=== PATIENT | female | born 1950 | race Caucasian/White ===

== ENCOUNTER 2016-08-23 05:53 | Inpatient (IN) ==
--- NOTE | 2016-08-22 09:43 | Anesthesia Evaluation PreOp ---
Date of Encounter: 08/23/16 Time of Encounter: 07:17 - Past History Planned Operation: CABG Cardiac History: Angina, HTN, Hyperlipidemia, Other (CAD) Pulmonary History: Former smoker (quit 28yrs ago) WARP DOFFER History: Other (Diabetic neuropathy) Other Medical History: Renal (stage 3 CKD), Diabetes Type II Anesthesia History: No Prior Anesthetic Complications, Past Anesthesia (NEW) : No Alcohol Use: none, occasionally Drug use: none Medications and Allergies Calcium Carbonate [Calcium] 500 mg PO DAILY 08/16/16 [History] Cholecalciferol (D-3) [Vitamin D] 1,000 unit PO DAILY 08/16/16 [History] Gabapentin [Neurontin] 800 mg PO TID 08/16/16 [History] Insulin DETEMIR [Levemir] 75 unit SQ HS 08/16/16 [History] Lisinopril [Zestril] 40 mg PO DAILY 08/16/16 [History] Metoprolol [Lopressor] 25 mg PO BID 08/16/16 [History] Multivitamin [Multivitamins] 1 each PO DAILY 08/16/16 [History] Omeprazole 20 mg PO DAILY 08/16/16 [History] Simvastatin [Zocor] 20 mg PO HS 08/16/16 [History] SitaGLIPtin [Januvia] 100 mg PO DAILY 08/16/16 [History] hydroCHLOROthiazide [Hydrochlorothiazide] 25 mg PO DAILY 08/16/16 [History] Allergies No Known Allergies Allergy (Verified 08/23/16 07:13) - Meds/Allergy Pre-op Review Medications Reviewed: Yes Allergies Reviewed: Yes Beta Blockers on Current Med List: Yes If Beta Blockers taken, Date/Time (Last Dose taken): 529 this morning Anesthesia Results - Labs Laboratory Tests 08/12/16 08/12/16 09:23 09:23 Hgb 11.5 Hct 34.4 L Plt Count 228 Sodium 138 Potassium 4.6 H BUN 33 H Creatinine 1.55 H - Imaging EKG: report reviewed Additional studies: Echo shows mild LV diastolic dysfunction, EF60%, mild MR Cath shows severe 3 vessel ds positive nuclear stress twest showing inferior/inferolateral changes Anesthesia Exam Selected Entries 08/23/16 06:26 Temperature 97.7 F Pulse Rate 49 Respiratory Rate 18 Blood Pressure 130/69 O2 Sat by Pulse Oximetry 95 Height: 62in Weight: 88kg NPO (# of Hours): 8 Pain Scale: 0 Pain Scale Used: Numeric (1 - 10) - HEENT Pupil (Motor): EOMI Mallampati: II Teeth: Edentulous Oral Opening: Greater than 3 - WARP DOFFER LOC: Oriented WARP DOFFER Motor: Normal RUE, Normal LUE, Normal RLE, Normal LLE, Normal Face WARP DOFFER Sensory: Normal: RUE, LUE, RLE, LLE, Face - Cardiac Rhythm: Regular Murmur: None - Pulmonary Breath Sounds: bilateral Clear Respiratory Effort: Symmetrical Anesthesia Assess/Plan ASA Score: 3 Modified Hershey Scale for Level of Consciousness: Cooperative, oriented, and tranquil Anesthetic Plan: General Monitoring Plan: Standard Monitors, A-Line, PAC, ASIF Recovery Plan: ICU (Discussed risks of GA, lines, ASIF and blood. Questions answered and agrees to proceed)
[2016-08-23] MEDS ORDERED: Ringers Solution, Lactated 1,000 ML IVC SCH (06:30)
[2016-08-23] MEDS ORDERED: ceFAZolin 1,000 MG in D5% in Water (Mini-Bag+) 100 ML IVPB ONE (06:37)
[2016-08-23] MEDS ORDERED: *HR* Phenylephrine 10 MG/ML VIAL ONE (06:43)
[2016-08-23] MEDS ORDERED: *HR* Norepinephrine 4 MG/4 ML VIAL IVC ONE (06:43)
[2016-08-23] MEDS ORDERED: *HR* Rocuronium Bromide 50 MG/5 ML VIAL ONE (06:43)
[2016-08-23] MEDS ORDERED: Famotidine 20 MG/2 ML VIAL ONE (06:44)
[2016-08-23] MEDS ORDERED: Protamine Sulfate 250 MG/25 ML VIAL IVP ONE (06:44)
[2016-08-23] MEDS ORDERED: *HR* Etomidate 20 MG/10 ML AMPUL IVP ONE (06:44)
[2016-08-23] MEDS ORDERED: Tranexamic Acid 1,000 MG/10 ML VIAL ONE (06:44)
[2016-08-23] MEDS ORDERED: *HR* Midazolam HCl 5 MG/5 ML VIAL IVP ONE (06:50)
[2016-08-23] MEDS ORDERED: *HR* FentaNYL (PF) 1,000 MCG/20 ML VIAL ONE (06:50)
[2016-08-23] MEDS ORDERED: Nitroglycerin 25 MG/250 ML INFUS..BTL IVC ONE ×2 (06:54→11:31)
[2016-08-23] MEDS ORDERED: NiCARdipine 2.5 MG/10 ML Syringe IVPB ONE (06:55)
[2016-08-23] MEDS: Chlorhexidine Rinse 15 ML MOUTHWASH MM SCH ×2 (07:02→20:09)
--- NOTE | 2016-08-23 07:11 | History & Physical Report ---
Date of Encounter: 08/23/16 Time of Encounter: 07:11 24 Hour HP Update - Instructions Instructions: If the History and Physical is less than 30 days old and was completed prior to A.M. admission and or procedure and has NOT been updated on calendar day of procedure please complete this update prior to performing procedure. - Update Patient reports changes in Medical Condition: No Changes in examination, assessment, or condition: No Changes in Medication: No Preop tests/diagnostics Reviewed: Yes Pre-Op MRSA Screen: Negative Surgery Remains Indicated: Yes Consent for Planned Operative Procedure(s) Verified: Yes - Pre-Operative Checklist Preoperative Checklist Indicated: No Prophylactic Antibiotic Ordered: Yes Home Medications Include Beta Sneha: Yes Beta Sneha Taken Today (Day of Surgery): Yes Beta Sneha Taken Yesterday (Day Prior to Surgery): Yes Is VTE Prophylaxis Indicated?: NO
[2016-08-23] MEDS ORDERED: *HR* Dextrose 50 % in Water (Syg) 50 ML SYRINGE ONE (08:18)
--- NOTE | 2016-08-23 08:36 | Anesthesia Procedures ---
Date of Encounter: 08/23/16 Time of Encounter: 07:50 Procedures: Anesthesia - Arterial Line Consent obtained: written consent Time out performed: Yes Sedation: Versed (mg): 2 Sedation: Fentanyl (mcg): 100 Supplemental Oxygen via Nasal Cannula (L/min): 2 Local Anesthetic: Lidocaine 1% Amount of Anesthetic used (mls): 1 Size (Gauge): 20 Length (inches): 5 Technique Used: sterile prep, guide wire technique, direct puncture technique Post-Procedure: line taped into place, dry sterile dressing placed Patient tolerated procedure: well, no complications Complications: none Site: Radial L (attempt x 1 easy) - Central Line Placement Right IJ Consent obtained: written consent Patient placed on monitor/pulse ox: Yes prep: mask, gown, gloves Central line prep: Chlorhexidine scrub Ultrasound used for placement: Yes Technique: Seldinger Lumen Inserted: Introducer Post procedure: sutured in place, good blood return, all ports aspirated, flushed, capped, sterile dressing applied Patient tolerated procedure: well, no complications Complications: none (attempt x 1, introducer placed easily. Able to get swan to PA but unable to wedge after 4 tries. Left catheter at approx 58cm. No arrythmia with placement.)
[2016-08-23] MEDS ORDERED: *HR* Atropine Sulfate 0.4 MG/ML VIAL ONE (09:22)
[2016-08-23] MEDS ORDERED: Albumin Human 5% 50.0 GM/1,000 ML VIAL ONE (11:31)
[2016-08-23] MEDS ORDERED: Naloxone 0.4 MG/ML INJ IVP PRN (11:45)
[2016-08-23] MEDS ORDERED: Acetaminophen 650 MG RECTAL SUPP RC PRN (11:45)
[2016-08-23] MEDS ORDERED: Norepinephrine 4 MG in D5% in Water 250 ML IVC SCH (11:45)
[2016-08-23] MEDS ORDERED: 0.9 % Sodium Chloride 1,000 ML IVC SCH (11:45)
[2016-08-23] MEDS ORDERED: Acetaminophen 325 MG TABLET PO PRN (11:45)
[2016-08-23] MEDS ORDERED: Insulin Human Regular 100 UNIT in 0.9 % Sodium Chloride 100 ML IVC SCH (11:45)
[2016-08-23] MEDS ORDERED: Potassium Chloride 40 MEQ/200 ML BAG IVPB PRN (11:45)
[2016-08-23] MEDS ORDERED: Magnesium Sulfate 2 GM in D5% in Water 100 ML IVPB PRN (11:45)
[2016-08-23] MEDS ORDERED: *HR* Morphine 2 MG/ML SYRINGE IVP PRN (11:45)
[2016-08-23] MEDS ORDERED: Ondansetron 4 MG/2 ML VIAL IVP PRN (11:45)
[2016-08-23] MEDS ORDERED: Insulin Regular, Human 100 UNIT/ML IV PRN (11:45)
[2016-08-23] MEDS ORDERED: *HR* Dextrose 50 % in Water (Syg) 50 ML SYRINGE IVP PRN (11:45)
[2016-08-23] MEDS ORDERED: Calcium Chloride 1,000 MG in 0.9 % Sodium Chloride 100 ML IVPB PRN (11:45)
--- NOTE | 2016-08-23 11:45 | Operative Note ---
Date of procedure: 08/23/16 Pre-op diagnosis: CAD with stable angina. Post-op diagnosis: same Procedure: 1. CABG4 (DE LEON to LAD, sequential SVG to D1 then OM1, SVG to PDA). 2. Endoscopic vein harvesting, greater saphenous vein from left lower extremity. 3. Endoscopic vein harvesting, greater saphenous vein from right lower extremity. Implants: None. Complications: None. Anesthesia: GETA Surgeon: Binta Zhang Second Facing Baster: Percy Zarate Specimen: None. Condition: stable Disposition: ICU Procedure in Detail: INDICATIONS FOR OPERATION: The patient is a 65-year-old lady with a one-year history of exertional left jaw pain and associated shortness of breath and dyspnea on exertion. The patient was being evaluated for a laparoscopic cholecystectomy when she mentioned these symptoms to her surgeon. The patient was referred for further cardiac workup. The nuclear stress test revealed inferior and inferolateral ischemia and she was recommended for cardiac catheterization. This study revealed severe 3 vessel CAD and LVEF 60%. In particular, patient had 90% proximal LAD lesion, a 90% D1 bifurcation lesion, an 80% proximal LCx lesion, a completely occluded proximal RCA which fills distally via zrox-di-phrfe collaterals. She has been recommended for CABG. FINDINGS AT OPERATION: The aorta was of normal caliber without calcification. The coronary arteries measure proximally and 0.5-2 mm in diameter, except the LAD which measured approximately 1-1.25 mm in diameter when it became epicardial. The greater saphenous vein was harvested endoscopically from both left and right lower extremities from the knee to the groin nodes of good quality. The total bypass time was 72 minutes, cross-clamp time 42 minutes, intentional hypothermia to 33 C. DESCRIPTION OF OPERATION: After obtaining informed consent from the patient, she was taken to the operative room where satisfactory general endotracheal anesthetic was induced. Appropriate monitoring lines placed, and the patient's chest, abdomen, and lower extremities were prepped and draped in a sterile fashion. Initially the greater saphenous vein could not be identified in the right lower extremity and the vein in the left lower extremity was harvested from the mid calf to the groin. The vein was removed, distended, and found to have 2 usable segments. A third usable segment of greater saphenous vein was identified in the right lower extremity and harvested endoscopically from the knee to the mid thigh. The vein was removed, distended, and found to be of good quality. The subcutaneous tissue and skin edges were reapproximated using running Vicryl sutures. Simultaneously, a standard median sternotomy incision was made and the sternum divided. The DE LEON was taken down from its bed and side branches divided between hemoclips. The sternum was of the pericardium opened and reflected laterally. He patient was prepared for cannulation by placing purse string sutures in the distal ascending aorta, mid-ascending aorta, and right atrial appendage. The patient was heparinized and when the ACT was greater than 200 seconds, the distal ascending aorta was cannulated followed by placement of a dual stage venous cannula through the right atrial appendage and into the inferior vena cava. A stab-in antegrade metabolic and was placed in the mid- ascending aorta. The patient was placed on bypass and the temperature allowed to drift to 33C. The distal targets were identified and the aorta was cross-clamp. The patient received 1000 mL of cold antegrade crystalloid cardioplegia through the aortic root and the patient's heart obtained diastolic arrest. The PDA was opened with B blade and the vein was anastomosed in end-to-side fashion using running 7-0 Prolene suture. The anastomosis was found to be hemostatic and the patient received another dose of cold antegrade crystalloid cardioplegia through the aortic root. The OM1 branch was opened with a [place] blade and the vein anastomosed in an end-to-side fashion using running 7-0 Prolene suture. The anastomosis was found to be hemostatic. The D1 branch was opened B blade and the vein was opened in longitudinal fashion so the uwau-pr-gclo anastomosis could be completed using a running 7-0 Prolene suture. The anastomosis was found to be hemostatic and the patient received a final dose of cold antegrade crystalloid cardioplegia through the aortic root. The LAD was an open [place] blade were became epicardial. The vessel was small, measuring approximately 1- 1.25 mm in diameter. A 1 mm probe was passed in both directions without encountering obstructions and a septal fund development manager was noted in the vessel helping to identify this vessel as the LAD. The DE LEON was anastomosed to the LAD in an end-to-side fashion using running 7-0 Prolene suture. Anastomosis was found to be hemostatic and the pedicle was tacked to the epicardium using interrupted 5-0 silk suture. Rewarming was begun during this anastomosis. The aortic cross-clamp was released and the heart distended. The veins were measured and cut appropriate lengths. A partial occluding clamp was placed across the mid-ascending aorta and the antegrade cardioplegia cannula was removed. An additional aortotomy site was made 11 blade and both sides were enlarged with a 4 mm punch. The veins were anastomosed in an end-to-side fashion to the aorta using a running 5-0 Prolene suture. The vein grafts were occluded with bulldog clamp and 0-25-gauge needle prior to removing the partial occluding clamp. The proximal distal anastomoses were found to be hemostatic and the proximal anastomoses were marked with radiopaque loops. Two right ventricular temporary pacing was replaced, and 3 chest tubes were placed, 2 in the mediastinum and one into the right pleural space. During rewarming the patient's heart regained sinus bradycardia rhythm. The temporary pacing leads were attached to the pacemaker generator and the patient was paced in a VVI mode at 80 pulses per minute. When the patient's systemic temperature reached 36 C, she was ventilated received volume. She was then weaned from bypass required no inotropic support. Protamine was administered and the aortic and venous cannulas removed. The pursestring sutures were secured and the venous cannulation site was reinforced with a running 4-0 Prolene suture. The pericardium was reapproximated over the aorta and pulmonary artery; however, could not be approximated distally due to excessive tension. The sternum was reapproximated using sternal wires and the pectoralis major fascia, rectus abdominis fascia, subcutaneous tissue, and skin edges were reapproximated using running Vicryl sutures. A negative pressure sterile dressing was applied to the sternotomy incision. The patient was transferred to the ICU in satisfactory postoperative condition. There were no intraoperative complications, and the isthmic, needle, and sponge count were correct at end of operation. - Open Heart Detail LIAN (Internal Mammary Artery) Usage: Yes Cardiopulmonary Bypass Time (mins): 72 Aortic Cross Clamp Time (mins): 42 Intentional Hypothermia Temperature (C.): 33
[2016-08-23] MEDS ORDERED: Tranexamic Acid 1,000 MG/10 ML VIAL IV ONE (12:00)
[2016-08-23] MEDS ORDERED: *HR* Phenylephrine 10 MG/ML VIAL IC ONE (12:00)
[2016-08-23] MEDS ORDERED: *HR* Magnesium Sulfate 2 GM/50 ML PIGGYBACK IVPB ONE (12:00)
[2016-08-23] MEDS ORDERED: Mannitol 25% vial 12.5 GM/50 ML VIAL IVPB ONE (12:00)
[2016-08-23] MEDS ORDERED: *HR* Heparin 10,000 UNIT/10 ML VIAL IVP ONE (12:00)
[2016-08-23] MEDS ORDERED: Albumin Human 25% 25 GM/100 ML IV.SOLN IV ONE (12:00)
[2016-08-23] MEDS ORDERED: Lidocaine 2% Syringe 100 MG/5 ML IVP ONE (12:00)
[2016-08-23 12:15] LABS: Basophils # 0.1 K/mcL (0.0-0.2); Basophils % 0.3 %; Eosinophils # 0.2 K/mcL (0.0-0.6); Eosinophils % 1.4 %; Hematocrit 28.3 % (35.3-44.9); Hemoglobin 9.6 g/dL (11.5-15.4); Lymphocytes # 1.9 K/mcL (0.6-4.6); Lymphocytes % 11.6 %; Mean Corpuscular HGB Conc 33.9 g/dL (31.6-35.5); Mean Corpuscular Hemoglobin 28.2 pg (28.0-33.3); Mean Corpuscular Volume 83.2 fL (83.0-100.0); Mean Platelet Volume 9.9 fL (9.4-12.4); Monocytes # 0.9 K/mcL (0.0-1.3); Monocytes % 5.4 %; Platelet Count 100 K/mcL (140-400); Red Cell Distribution Width 13.6 % (11.5-14.5); Segmented Neutrophils % 80.3 %
[2016-08-23 12:16] LABS: ABG Base Excess -1.2 mEq/L (-2.0 to 3.0); ABG HCO3 23.6 mEQ/L (21-27); ABG Oxygen Saturation 100 % (95-98); ABG PCO2 39 mmHg (35-45); ABG PO2 306 mmHg (85-104); ABG TCO2 24.8 mEq/L (20-26)
[2016-08-23 12:18] LABS: ABG PH 7.39 pH Units (7.32-7.45); Blood Gas FiO2 70 %
[2016-08-23 12:20] LABS: INR 1.5; Prothrombin Time 16.2 Seconds (9.4-12.1)
[2016-08-23 12:22] LABS: Activated Partial Thrombo Time 33.8 Seconds (26.0-36.0)
[2016-08-23 12:27] LABS: BUN/Creatinine Ratio 23 (6-26); Blood Urea Nitrogen 25 mg/dL (7-20); Calcium 8.1 mg/dL (8.6-10.8); Carbon Dioxide 23 mEq/L (19-29); Chloride 114 mEq/L (98-109); Glucose 119 mg/dL (70-99); Magnesium 2.5 mg/dL (1.6-2.6); Osmolality,Calculated 300 (280-300); Potassium 4.1 mEq/L (3.5-4.5); Sodium 142 mEq/L (136-145); eGFR For African Americans > 60 (> 60); eGFR For Non-African Americans 50 (> 60)
[2016-08-23] MEDS ORDERED: *HR* Atropine Sulfate 1 MG/10 ML SYRINGE ONE (12:28)
[2016-08-23 13:01] LABS: VBG HCO3 24.8 mEq/L (21-27)
[2016-08-23 13:04] LABS: VBG PH 7.34 pH Units (7.32-7.42)
[2016-08-23 13:06] LABS: ABG PH 7.23 pH Units (7.32-7.45)
[2016-08-23 13:08] LABS: ABG PCO2 71 mmHg (35-45)
[2016-08-23 13:09] LABS: ABG Base Excess 1.1 mEq/L (-2.0 to 3.0); ABG Glucose 69 mg/dL (60-95); ABG HCO3 29.7 mEQ/L (21-27); ABG Hematocrit 31 % (35-51); ABG Oxygen Saturation 96 % (95-98); ABG PO2 98 mmHg (85-104); ABG TCO2 31.9 mEq/L (20-26)
[2016-08-23 13:12] LABS: ABG PH 7.35 pH Units (7.32-7.45)
[2016-08-23 13:13] LABS: ABG Base Excess 0.1 mEq/L (-2.0 to 3.0); ABG Glucose 143 mg/dL (60-95); ABG HCO3 25.9 mEQ/L (21-27); ABG Hematocrit 26 % (35-51); ABG Ionized Calcium 1.27 mmol/L (1.15-1.35); ABG Oxygen Saturation 100 % (95-98); ABG PCO2 47 mmHg (35-45); ABG PO2 223 mmHg (85-104); ABG TCO2 27.3 mEq/L (20-26)
[2016-08-23 13:15] LABS: ABG Base Excess -1.3 mEq/L (-2.0 to 3.0); ABG HCO3 23.7 mEQ/L (21-27); ABG Hematocrit 18 % (35-51); ABG Oxygen Saturation 100 % (95-98); ABG PCO2 40 mmHg (35-45); ABG PH 7.38 pH Units (7.32-7.45); ABG PO2 644 mmHg (85-104); ABG TCO2 24.9 mEq/L (20-26)
[2016-08-23 13:16] LABS: ABG Glucose 235 mg/dL (60-95); ABG Ionized Calcium 0.98 mmol/L (1.15-1.35)
[2016-08-23 13:18] LABS: ABG Base Excess -0.3 mEq/L (-2.0 to 3.0); ABG Glucose 198 mg/dL (60-95); ABG HCO3 24.8 mEQ/L (21-27); ABG Hematocrit 20 % (35-51); ABG Ionized Calcium 1.08 mmol/L (1.15-1.35); ABG Oxygen Saturation 100 % (95-98); ABG PCO2 42 mmHg (35-45); ABG PH 7.38 pH Units (7.32-7.45); ABG PO2 510 mmHg (85-104); ABG TCO2 26.1 mEq/L (20-26)
[2016-08-23 13:20] LABS: ABG PCO2 42 mmHg (35-45); ABG PH 7.38 pH Units (7.32-7.45)
[2016-08-23 13:21] LABS: ABG Base Excess -0.3 mEq/L (-2.0 to 3.0); ABG Glucose 171 mg/dL (60-95); ABG HCO3 24.8 mEQ/L (21-27); ABG Hematocrit 21 % (35-51); ABG Ionized Calcium 1.06 mmol/L (1.15-1.35); ABG Oxygen Saturation 100 % (95-98); ABG PO2 515 mmHg (85-104); ABG TCO2 26.1 mEq/L (20-26)
[2016-08-23 13:23] LABS: ABG Base Excess 2.8 mEq/L (-2.0 to 3.0); ABG Glucose 159 mg/dL (60-95); ABG HCO3 27.9 mEQ/L (21-27); ABG Hematocrit 22 % (35-51); ABG Ionized Calcium 1.05 mmol/L (1.15-1.35); ABG Oxygen Saturation 100 % (95-98); ABG PCO2 45 mmHg (35-45); ABG PO2 513 mmHg (85-104); ABG TCO2 29.3 mEq/L (20-26)
[2016-08-23] MEDS: Pantoprazole 40 MG VIAL IVP SCH (13:24)
[2016-08-23 13:25] LABS: ABG Base Excess -1.6 mEq/L (-2.0 to 3.0); ABG HCO3 23.7 mEQ/L (21-27); ABG PCO2 42 mmHg (35-45); ABG PH 7.36 pH Units (7.32-7.45); ABG PO2 195 mmHg (85-104)
[2016-08-23] MEDS: Metoclopramide 10 MG/2 ML VIAL IVP SCH ×3 (13:25→23:01)
[2016-08-23 13:26] LABS: ABG Glucose 125 mg/dL (60-95); ABG Hematocrit 19 % (35-51); ABG Ionized Calcium 1.38 mmol/L (1.15-1.35); ABG Oxygen Saturation 100 % (95-98)
[2016-08-23 13:28] LABS: ABG Base Excess -3.2 mEq/L (-2.0 to 3.0); ABG Glucose 109 mg/dL (60-95); ABG Hematocrit 20 % (35-51); ABG Ionized Calcium 1.08 mmol/L (1.15-1.35); ABG Oxygen Saturation 100 % (95-98); ABG PCO2 39 mmHg (35-45); ABG PH 7.36 pH Units (7.32-7.45); ABG PO2 190 mmHg (85-104); ABG TCO2 23.2 mEq/L (20-26)
[2016-08-23] MEDS: niCARdipine 40 MG/200 ML MLS IVC SCH ×2 (14:16→20:00)
[2016-08-23] MEDS: *HR* Morphine 2 MG/ML SYRINGE IVP PRN (15:29)
[2016-08-23] MEDS: ceFAZolin 2,000 MG in D5% in Water 100 ML IVPB SCH ×2 (15:34→23:00)
[2016-08-23 16:30] LABS: Hematocrit 28.3 % (35.3-44.9); Hemoglobin 9.7 g/dL (11.5-15.4)
[2016-08-23 16:31] LABS: ABG Base Excess -1.9 mEq/L (-2.0 to 3.0); ABG HCO3 21.5 mEQ/L (21-27); ABG Oxygen Saturation 99 % (95-98); ABG PCO2 31 mmHg (35-45); ABG PH 7.45 pH Units (7.32-7.45); ABG PO2 114 mmHg (85-104); ABG TCO2 22.5 mEq/L (20-26)
[2016-08-23 16:33] LABS: Blood Gas FiO2 35 %
--- NOTE | 2016-08-23 17:02 | Event Note ---
Date of Encounter: 08/23/16 Time of Encounter: 17:01 Nephrology Chart Review Full consult and recommendations to follow. SCr post op was near 1 but likely dilutional from IVF, so will trend SCr. Hx of CKD stage III without prior nephrology care. Will check renal U/S and CKD work up. Thank you for consulting the [facility] group. Will follow with you.
[2016-08-23] MEDS: *HR* OxyCODONE/APAP 5/325 TABLET PO PRN ×2 (18:03→23:02)
[2016-08-23 20:01] LABS: ABG Base Excess -0.3 mEq/L (-2.0 to 3.0); ABG HCO3 22.3 mEQ/L (21-27); ABG Oxygen Saturation 96 % (95-98); ABG PCO2 28 mmHg (35-45); ABG PO2 75 mmHg (85-104); ABG TCO2 23.2 mEq/L (20-26); Blood Gas FiO2 21 %
[2016-08-23 20:03] LABS: ABG PH 7.51 pH Units (7.32-7.45)
--- NOTE | 2016-08-23 21:09 | Electrocardiograph Report ---
[place] [id number] Test Date: 2016-08-23 Pat Name: Lorena Silva Department: 109 Room: [facility] Gender: F Swing Ride Operator: : 1950 Requested By: Binta Zhang Order Number: [id number] Reading MD: Marlyn De La Torre Measurements Intervals [place] Rate: 63 P: OR: 0 QRS: 20 QRSD: 122 T: 1 QT: 428 QTc: 435 Interpretive Statements SINUS RHYTHM INTERMITTENT V PACING Electronically Signed On 08-23-2016 21:07:22 EDT by Marlyn De La Torre
[2016-08-23 23:18] LABS: ABG Base Excess -0.7 mEq/L (-2.0 to 3.0); ABG HCO3 22.6 mEQ/L (21-27); ABG Oxygen Saturation 99 % (95-98); ABG PCO2 31 mmHg (35-45); ABG PO2 110 mmHg (85-104); ABG TCO2 23.6 mEq/L (20-26); Blood Gas FiO2 30 %
[2016-08-23 23:19] LABS: ABG PH 7.47 pH Units (7.32-7.45)
[2016-08-24] MEDS: niCARdipine 40 MG/200 ML MLS IVC SCH (00:32)
[2016-08-24 00:38] LABS: ABG Base Excess -1.5 mEq/L (-2.0 to 3.0); ABG HCO3 23.7 mEQ/L (21-27); ABG Oxygen Saturation 97 % (95-98); ABG PCO2 41 mmHg (35-45); ABG PO2 99 mmHg (85-104); Blood Gas FiO2 30 %
[2016-08-24 00:40] LABS: ABG PH 7.37 pH Units (7.32-7.45)
[2016-08-24 02:16] LABS: ABG Base Excess -2.8 mEq/L (-2.0 to 3.0); ABG HCO3 22.6 mEQ/L (21-27); ABG Oxygen Saturation 93 % (95-98); ABG PCO2 41 mmHg (35-45); ABG PO2 72 mmHg (85-104); ABG TCO2 23.9 mEq/L (20-26)
[2016-08-24 02:17] LABS: Blood Gas FiO2 24 %
[2016-08-24 02:18] LABS: ABG PH 7.35 pH Units (7.32-7.45)
[2016-08-24 03:02] LABS: Basophils % 0.2 %; Eosinophils % 0.1 %; Hematocrit 26.8 % (35.3-44.9); Hemoglobin 9.1 g/dL (11.5-15.4); Immature Granulocytes % 0.6 % (0-4); Lymphocytes % 7.3 %; Mean Corpuscular Hemoglobin 28.3 pg (28.0-33.3); Mean Corpuscular Volume 83.2 fL (83.0-100.0); Mean Platelet Volume 9.8 fL (9.4-12.4); Monocytes # 0.9 K/mcL (0.0-1.3); Monocytes % 6.4 %; Neutrophils # 11.3 K/mcL (1.6-8.9); Platelet Count 110 K/mcL (140-400); Red Blood Count 3.22 M/mcL (3.82-4.97); Segmented Neutrophils % 85.4 %
[2016-08-24 03:06] LABS: INR 1.2; Prothrombin Time 13.1 Seconds (9.4-12.1)
[2016-08-24 03:09] LABS: Activated Partial Thrombo Time 27.8 Seconds (26.0-36.0)
[2016-08-24 03:15] LABS: Calcium 8.3 mg/dL (8.6-10.8); Magnesium 2.5 mg/dL (1.6-2.6)
[2016-08-24 03:17] LABS: Albumin 3.4 g/dL (3.5-5.0)
[2016-08-24 03:18] LABS: Phosphorous 3.7 mg/dL (2.3-4.7)
[2016-08-24] MEDS: Metoclopramide 10 MG/2 ML VIAL IVP SCH ×3 (05:00→17:24)
--- NOTE | 2016-08-24 07:12 | Cardiothoracic Progress Note ---
Date of Encounter: 08/24/16 Time of Encounter: 07:09 - Assessment and plan (1) CAD (coronary artery disease) Current Visit: No Status: Acute The patient is recovering well from her CABG 4. She is extubated and breathing comfortably. She has been able to sit in a chair without difficulty. Her renal function is at baseline this morning and she is being followed by nephrology. The arterial line, catheter, and [place] catheter removed. Patient was transferred to the stepdown unit later today. The assessment and plan as outlined above was discussed with the patient and/or family members who expressed understanding and agreement. All questions were answered. Qualifiers: Coronary Disease-Associated Artery/Lesion type: [place] artery [place] vs. transplanted heart: [place] heart Associated angina: with stable angina Qualified Code(s): I25.118 - Atherosclerotic heart disease of [place] coronary artery with other forms of angina pectoris - Subjective Procedure(s) Performed: POD#1 S/P CABG4 Interval history: The patient remained hemodynamically stable overnight. She is extubated and sitting in a chair. She is breathing comfortably. She has no complaints. Vital Signs, Last 4 Hours Temp Pulse Resp BP Pulse Ox 08/24/16 06:05 81 16 122/46 96 08/24/16 05:00 98.6 F 78 16 119/42 94 08/24/16 04:22 20 126/43 94 08/24/16 03:55 74 16 117/45 96 [place]gy[place] Flow Rate Oxygen Flow Rate (LPM) 1 Clinical Data, last 8 Hours Output, Chest Tube Drainage 50 Amount [mediastinal 2] Output, Chest Tube Drainage 10 Amount [mediastinal 2] Output, Chest Tube Drainage 10 Amount [mediastinal 2] Output, Chest Tube Drainage 25 Amount [mediastinal 2] Output, Chest Tube Drainage 20 Amount [mediastinal 2] Output, Chest Tube Drainage 10 Amount [mediastinal 2] Output, Chest Tube Drainage 30 Amount [mediastinal 2] Output, Chest Tube Drainage 25 Amount [mediastinal 1] Output, Chest Tube Drainage 10 Amount [mediastinal 1] Output, Chest Tube Drainage 2 Amount [mediastinal 1] Output, Chest Tube Drainage 2 Amount [mediastinal 1] Weight 08/22/16 08/23/16 08/24/16 23:59 23:59 23:59 Weight 88.451 kg - Physical Examination General: Conversant, No Apparent Distress Neck: No JVD, Normal carotid pulses Cardiac: Reg Rate and Rhythm, Normal S1 and S2, No Murmur Incision: No signs of infection, Dry/intact dressing Sternum: Stable Chest tubes: Minimal drainage, Other (No air leak.) Pacing Wires: In place Lungs: Normal Breath Sounds, No Wheeze, Rales, Rhonchi Neuro: Alert and responsive, No focal deficits noted Vascular: Normal capillary refill Musculoskeletal: No Chest Wall Tenderness Extremities: No Clubbing, No Cyanosis, No Edema - Labs 08/24/16 02:55 08/24/16 02:55 Lab Results, Last 24 hours 08/23/16 08/23/16 08/23/16 12:05 12:05 12:05 WBC 16.2 H Hgb 9.6 L Hct 28.3 L Plt Count 100 L INR 1.5 APTT 33.8 Sodium 142 Potassium 4.1 Chloride 114 H Carbon Dioxide 23 BUN 25 H Creatinine 1.09 Glucose 119 H Calcium 8.1 L Magnesium 2.5 08/23/16 08/24/16 08/24/16 16:20 02:55 02:55 WBC 13.3 H Hgb 9.7 L 9.1 L Hct 28.3 L 26.8 L Plt Count 110 L INR 1.2 APTT 27.8 Sodium Potassium Chloride Carbon Dioxide BUN Creatinine Glucose Calcium Magnesium 08/24/16 02:55 WBC Hgb Hct Plt Count INR APTT Sodium 141 Potassium 4.0 Chloride 112 H Carbon Dioxide 23 BUN 29 H Creatinine 1.51 H Glucose 131 H Calcium 8.3 L Magnesium 2.5 - Imaging Chest Xray: image reviewed (No pneumothorax. Minimal atelectasis/infiltrates.) - VTE Documentation of Mechanical Device: Graduated compression elastic hosiery Consult Discharge Plan - Plan Referrals: Arleen Moore MD [Primary Care Provider] -
[2016-08-24] MEDS: Chlorhexidine Rinse 15 ML MOUTHWASH MM SCH ×2 (07:27→20:43)
[2016-08-24] MEDS: *HR* Morphine 2 MG/ML SYRINGE IVP PRN (07:27)
[2016-08-24] MEDS: Pantoprazole 40 MG VIAL IVP SCH (07:28)
[2016-08-24] MEDS ORDERED: Furosemide 20 MG/2 ML VIAL IVP SCH (08:00)
[2016-08-24] MEDS ORDERED: Aspirin Enteric Coated 81 MG Tablet PO SCH (09:00)
[2016-08-24] MEDS ORDERED: D5% in Water 1,000 ML IVC PRN (10:03)
[2016-08-24] MEDS ORDERED: Ondansetron 4 MG/2 ML VIAL IVP PRN (10:03)
[2016-08-24] MEDS ORDERED: Insulin Regular, Human 100 UNIT/ML IV PRN (10:03)
[2016-08-24] MEDS ORDERED: Acetaminophen 325 MG TABLET PO PRN (10:03)
[2016-08-24] MEDS ORDERED: *HR* Morphine 2 MG/ML SYRINGE IVP PRN ×2 (10:03)
[2016-08-24] MEDS ORDERED: Naloxone 0.4 MG/ML INJ IVP PRN (10:03)
[2016-08-24] MEDS ORDERED: *HR* Dextrose 50 % in Water (Syg) 50 ML SYRINGE IVP PRN (10:03)
[2016-08-24] MEDS ORDERED: Dextrose Gel 15 GM PO PRN ×2 (10:03)
--- NOTE | 2016-08-24 10:37 | Nephrology Consult Note ---
Date of Encounter: 08/24/16 Time of Encounter: 09:45 Assessment and Plan (1) HI (acute kidney injury) Current Visit: Yes Status: Acute Nonoliguric HI on CKD stage III with baseline eGFR 40-50s Suspect HI etiology to be multifactorial: hemodynamics, underlying CKD and hx of chronic XS NSAID use. NSAIDS also carry a higher risk for CAD. I counseled her on standard CKD protective steps. 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 Will trend CK Thank you for consulting the [facility] group. (2) Anemia Current Visit: Yes Status: Acute Will trend. Qualifiers: Anemia type: other cause Other causes of anemia: other cause, not classified Qualified Code(s): D64.89 - Other specified anemias (3) Status post coronary artery bypass graft Current Visit: Yes Status: Acute S/p CABG on 08/23/16. (4) CKD (chronic kidney disease), stage III Current Visit: Yes Status: Chronic CKD stage III with baseline eGFR in 40-50s. She affirmed NSAID regular / daily use of NSAIDs prior to this hospitalization. 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 Qualifiers: Obesity type: unspecified obesity type Obesity severity: morbid Qualified Code(s): E66.01 - Morbid (severe) obesity due to excess calories History of Present Illness - Reason for Consult Consult date: 08/23/16 Acute Kidney Injury, Chronic Kidney Disease Requesting physician: Binta Zhang - Chief Complaint HI on CKD III - History of Present Illness Lorena Silva is a very pleasant 65 y/o obese WF with a pmh of HTN, arthritis on daily NSAIDS and et al who presented for a planned CABG. Earlier this year she developed gall bladder complaints and was getting worked up for cholecystectomy when in preoperative evaluation she ultimately required a LHC with findings of triple vessel disease and was referred for CABG. 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 She affirmed at least twice per day that she takes Advil for arthritis pains in her hands. She reported that her PCP had advised against taking NSAIDs in the past. She did not affirm uremic symptoms. She was seen and evaluated in the ICU. Past Med Surg Social Fam HX - Past Medical History Medical history: coronary artery disease, diabetes, hyperlipidemia, hypertension , renal disease, other Psychiatric history: no psych history - Past Surgical History Surgical History: hysterectomy, other - Social History Smoking Status: Former smoker Packs per day: Quit smoking 27 years ago Smokeless Tobacco Status: No Alcohol use: none, occasionally Drug use: none Medications and Allergies Calcium Carbonate [Calcium] 500 mg PO DAILY 08/16/16 [History] Cholecalciferol (D-3) [Vitamin D] 1,000 unit PO DAILY 08/16/16 [History] Gabapentin [Neurontin] 800 mg PO TID 08/16/16 [History] Insulin DETEMIR [Levemir] 75 unit SQ HS 08/16/16 [History] Lisinopril [Zestril] 40 mg PO DAILY 08/16/16 [History] Metoprolol [Lopressor] 25 mg PO BID 08/16/16 [History] Multivitamin [Multivitamins] 1 each PO DAILY 08/16/16 [History] Omeprazole 20 mg PO DAILY 08/16/16 [History] Simvastatin [Zocor] 20 mg PO HS 08/16/16 [History] SitaGLIPtin [Januvia] 100 mg PO DAILY 08/16/16 [History] hydroCHLOROthiazide [Hydrochlorothiazide] 25 mg PO DAILY 08/16/16 [History] Allergies No Known Allergies Allergy (Verified 08/23/16 07:13) Review of Systems All Systems: reviewed and no additional remarkable complaints except as stated Exam - Vital Signs Vital signs: Initial Vital Signs Temp Pulse Resp BP Pulse Ox 97.7 F 49 18 130/69 95 08/23/16 06:26 08/23/16 06:26 08/23/16 06:26 08/23/16 06:26 08/23/16 06:26 Vital Signs - Last 8 Hours Temp Pulse Resp BP Pulse Ox 08/24/16 08:21 16 949 08/24/16 08:06 76 14 121/50 94 08/24/16 07:30 98.8 F 77 16 133/49 96 08/24/16 06:05 81 16 122/46 96 08/24/16 05:00 98.6 F 78 16 119/42 94 08/24/16 04:22 20 126/43 94 08/24/16 03:55 74 16 117/45 96 08/24/16 03:00 99.2 F 73 12 114/47 96 Intake and Output 08/23/16 08/24/16 08/24/16 23:59 07:59 15:59 Intake Total 396.0 / 396.0 348.3 / 348.3 1007.8 / 1007.8 Output Total 1085 / 1085 509 / 509 0 / 0 Balance -689.0 / -689.0 -160.7 / -160.7 1007.8 / 1007.8 Intake: IV Fluids 296.0 / 296.0 348.3 / 348.3 1007.8 / 1007.8 0.9 % Sodium Chloride 1, 1000 / 1000 000 ML @ 50 mls/hr IVC . Q20H [facility] Rx#:[id number] HumuLIN R 100 UNIT In 0. 6.0 / 6.0 60.3 / 60.3 7.8 / 7.8 9 % Sodium Chloride 100 ML @ 1 UNIT/HR 1.01 mls/ hr IVC CONT [facility] Rx#: [id number] Cardene Premix 40mg/200ml 90 / 90 38 / 38 40 mg In 200 ml @ 5 MG/ HR 25 mls/hr IVC .Q8H [facility] Rx#:[id number] ALBURX 5% 12.5 gm In 250 250 / 250 ml @ 999 mls/hr IVPB AD PRN Rx#:[id number] Ancef 2,000 MG In 200 / 200 Dextrose 5% 100 ML @ 200 mls/hr IVPB Q8HR [facility] Rx#: [id number] Oral 0 / 0 0 / 0 Intake, Autotransfusion 100 / 100 Amount Output: Catheter 885 / 885 280 / 280 0 / 0 Chest Tube Drainage 200 / 200 229 / 229 0 / 0 mediastinal 1 10 54 / 54 0 / 0 mediastinal 2 190 / 190 175 / 175 0 / 0 Other: Blood Glucose* 145 158 147 - General Appearance General appearance: well-developed, well-nourished, appears started age, obese EENT: ATNC, PERRL, mucous membranes moist Neck: supple Respiratory: clear Cardiology: edema (trace to 1+ pedal edema with white stocking in place b/l), regular rate, regular rhythm, normal S1, normal S2 Gastrointestinal: normoactive bowel sounds, no tenderness, no guarding, obese Integumentary: no rash, warm and dry Neurologic: no focal deficit, no asterixis, alert and oriented x3 Musculoskeletal: no deformities, no erythema, no cyanosis, no clubbing Psychiatric: mood/affect appropriate, cooperative Results - Lab Results 08/24/16 02:55 08/24/16 02:55 Most recent lab results ABG pH 7.35 pH Units (7.32-7.45) 08/24/16 02:10 ABG pCO2 41 mmHg (35-45) 08/24/16 02:10 ABG pO2 72 mmHg (85-104) L 08/24/16 02:10 ABG HCO3 22.6 mEQ/L (21-27) 08/24/16 02:10 ABG O2 Saturation 93 % (95-98) L 08/24/16 02:10 Calcium 8.3 mg/dL (8.6-10.8) L 08/24/16 02:55 Phosphorus 3.7 mg/dL (2.3-4.7) 08/24/16 02:55 Magnesium 2.5 mg/dL (1.6-2.6) 08/24/16 02:55 I reviewed the above auto generated data tse, including labs, meds, vitals, imaging and progress notes. Consult Discharge Plan - Plan Referrals: Arleen Moore MD [Primary Care Provider] -
[2016-08-24] MEDS: *HR* OxyCODONE/APAP 5/325 TABLET PO PRN ×2 (10:44→18:29)
[2016-08-24] MEDS: Insulin LISPRO 300 UNITS/3 ML VIAL SQ SCH ×4 (10:45→20:46)
[2016-08-24] MEDS: Gabapentin 400 MG CAPSULE PO SCH ×3 (10:52→20:44)
[2016-08-24] MEDS: Cholecalciferol (D-3) 1,000 UNIT TABLET PO SCH (10:52)
[2016-08-24] MEDS: Multivit/Ca/Min/Fe/FA 1 TAB TABLET PO SCH (10:55)
--- NOTE | 2016-08-24 13:53 | Anesthesia Evaluation Post Op ---
Date of Encounter: 08/24/16 Time of Encounter: 12:30 - Vital Signs Vital Signs: Selected Entries 08/24/16 10:00 08/24/16 12:00 Temperature 98.5 F Pulse Rate 78 Respiratory Rate 16 Blood Pressure 123/51 O2 Sat by Pulse Oximetry 94 Oxygen Delivery Method Room Air - Lungs Lungs: Clear Ascult./Percussion - Airway Airway: Non-obstructed - Cardiovascular Regular Rate - Mental Status Mental Status: Alert & Oriented, Answers Appropriately - Pain Pain Scale: 3 Pain Scale used: Numeric (1 - 10) - Nausea Vomiting Nausea Vomiting: Not Present - Hydration Hydration: Tolerates oral liquids, catheter
[2016-08-24] MEDS: Furosemide 20 MG/2 ML VIAL IVP SCH (17:24)
[2016-08-25] MEDS: Metoclopramide 10 MG/2 ML VIAL IVP SCH ×5 (00:20→23:48)
[2016-08-25] MEDS: *HR* OxyCODONE/APAP 5/325 TABLET PO PRN ×3 (04:01→23:48)
[2016-08-25 04:41] LABS: Calcium 8.3 mg/dL (8.6-10.8); Magnesium 2.4 mg/dL (1.6-2.6); Phosphorous 3.7 mg/dL (2.3-4.7); Potassium 4.2 mEq/L (3.5-4.5)
[2016-08-25] MEDS: Insulin LISPRO 300 UNITS/3 ML VIAL SQ SCH ×4 (07:46→21:21)
[2016-08-25] MEDS: Furosemide 20 MG/2 ML VIAL IVP SCH ×2 (07:47→17:52)
[2016-08-25] MEDS: Chlorhexidine Rinse 15 ML MOUTHWASH MM SCH ×2 (08:32→21:21)
[2016-08-25] MEDS: Cholecalciferol (D-3) 1,000 UNIT TABLET PO SCH (08:32)
[2016-08-25] MEDS: Pantoprazole 40 MG VIAL IVP SCH (08:33)
[2016-08-25] MEDS: Multivit/Ca/Min/Fe/FA 1 TAB TABLET PO SCH (08:33)
[2016-08-25] MEDS: Aspirin Enteric Coated 81 MG Tablet PO SCH (08:33)
[2016-08-25] MEDS: Gabapentin 400 MG CAPSULE PO SCH ×3 (08:33→21:20)
--- NOTE | 2016-08-25 08:55 | Cardiothoracic Progress Note ---
Date of Encounter: 08/25/16 Time of Encounter: 08:53 - Assessment and plan (1) CAD (coronary artery disease) Current Visit: No Status: Acute The patient is recovering well from her CABG 4. She is breathing comfortably. Her chest tubes continue to drain and will remain in place. Her renal function remains at baseline this morning and she is being followed by nephrology. She will be transferred to the stepdown unit later when a bed is available. The assessment and plan as outlined above was discussed with the patient and/or family members who expressed understanding and agreement. All questions were answered. Qualifiers: Coronary Disease-Associated Artery/Lesion type: [place] artery [place] vs. transplanted heart: [place] heart Associated angina: with stable angina Qualified Code(s): I25.118 - Atherosclerotic heart disease of [place] coronary artery with other forms of angina pectoris - Subjective Procedure(s) Performed: POD#2 S/P CABG4 Interval history: The patient remained hemodynamically stable overnight. She is breathing comfortably. She has no complaints. Vital Signs, Last 4 Hours Temp Pulse 08/25/16 08:13 98.4 F 08/25/16 08:00 76 Oxgyen Flow Rate Oxygen Flow Rate (LPM) 1 Clinical Data, last 8 Hours Output, Chest Tube Drainage 20 Amount [mediastinal 2] Output, Chest Tube Drainage 30 Amount [mediastinal 2] Output, Chest Tube Drainage 0 Amount [mediastinal 2] Output, Chest Tube Drainage 0 Amount [mediastinal 1] Output, Chest Tube Drainage 150 Amount [mediastinal 1] Output, Chest Tube Drainage 0 Amount [mediastinal 1] Output, Urine Amount 0 Weight 08/23/16 08/24/16 08/25/16 23:59 23:59 23:59 Weight 88.451 kg 90.5 kg - Physical Examination General: Conversant, No Apparent Distress Neck: No JVD, Normal carotid pulses Cardiac: Reg Rate and Rhythm Incision: No signs of infection, Dry/intact dressing Sternum: Stable Chest tubes: Minimal drainage, Air leak Pacing Wires: In place Lungs: Normal Breath Sounds, No Wheeze, Rales, Rhonchi Neuro: Alert and responsive, No focal deficits noted Vascular: Normal capillary refill Musculoskeletal: No Chest Wall Tenderness Extremities: No Clubbing, No Cyanosis, No Edema - Labs 08/24/16 02:55 08/25/16 04:06 Lab Results, Last 24 hours 08/25/16 04:06 Sodium 136 Potassium 4.2 Chloride 105 Carbon Dioxide 23 BUN 42 H D Creatinine 1.76 H Glucose 218 H Calcium 8.3 L Magnesium 2.4 - VTE Documentation of Mechanical Device: Graduated compression elastic hosiery Consult Discharge Plan - Plan Referrals: Arleen Moore MD [Primary Care Provider] -
--- NOTE | 2016-08-25 11:46 | Nephrology Progress Note ---
<Nathalia Downing - Last Filed: 08/25/16 13:23> Date of Encounter: 08/25/16 Time of Encounter: 13:24 - Assessment and Plan (1) HI (acute kidney injury) Current Visit: Yes Status: Acute Patient with nonoliguric HI on CKD stage III. Etiology is multifactorial - hemodynamics, underlying CKD and chronic use of NSAIDs. Creatinine worsening today 1.09 > 1.51 > 1.76 likely secondary to patient's worsening CK 636 > 1762 secondary to her recent CABG. Recommend IVF with the worsening CK. Monitor kidney function. No indication for acute hemodialysis at this time. Continue to monitor UOP and I/O Hold patients home ALEJANDRO and HCTZ Renal protective strategies including renal dosage of medications and avoid any nephrotoxic medications. Patient will likely require outpatient follow up with nephrology to monitor her underlying chronic kidney disease. (2) Anemia Current Visit: Yes Status: Acute Qualifiers: Anemia type: other cause Other causes of anemia: other cause, not classified Qualified Code(s): D64.89 - Other specified anemias (3) CKD (chronic kidney disease), stage III Current Visit: Yes Status: Chronic (4) Status post coronary artery bypass graft Current Visit: Yes Status: Acute Subjective Principal diagnosis: Status post CABG Interval history: Ms Lorena Silva is a 65yo female with PMH of HTN and arthritis who is admitted status post CABG. Nephrology consulted for acute kidney injury. Patient appears to have CKD, stage III with baseline GFR in the 40s-50s. No acute events overnight. Patient afebrile and vital signs within normal limits. Creatinine 1.79 today from 1.51 yesterday. Patient seen and examined. She is awake and alert, in no acute distress. She as no complaints at this time and reports that she feels better than she thought she would. She reports no urinary symptoms. She does report that her legs frequently swell and they are currently wrapped. Objective - Vital Signs Vital signs: Vital Signs Temp Pulse Resp BP Pulse Ox 08/25/16 10:00 73 14 147/70 94 08/25/16 08:30 16 147/70 94 08/25/16 08:13 98.4 F 08/25/16 08:00 76 08/25/16 04:50 98.5 F 08/25/16 04:10 78 24 148/70 94 08/25/16 03:55 17 91 08/25/16 00:31 69 26 120/63 93 08/25/16 00:19 98.7 F 08/24/16 23:50 17 94 08/24/16 21:00 98.4 F 08/24/16 20:45 75 24 122/75 93 08/24/16 19:59 18 93 08/24/16 18:00 78 20 141/71 94 08/24/16 16:07 14 93 08/24/16 16:00 98.2 F 75 20 142/69 94 08/24/16 15:00 72 08/24/16 14:00 72 20 113/54 94 08/24/16 12:00 78 16 123/51 94 Intake and Output 08/24/16 08/25/16 08/25/16 23:59 07:59 15:59 Intake Total 640 / 640 240 / 240 240 / 240 Output Total 50 / 50 145 / 145 325 / 325 Balance 590 / 590 95 / 95 -85 / -85 Intake: Oral 640 / 640 240 / 240 240 / 240 Output: Urine 50 / 50 0 / 0 Catheter 125 / 125 Chest Tube Drainage 145 / 145 200 / 200 mediastinal 1 75 / 75 150 / 150 mediastinal 2 70 / 70 50 / 50 Other: Meal Breakfast Percent of Meal Consumed 20% Weight 90.5 kg Blood Glucose* 209 226 Patient Weight 08/25/16 23:59 Weight 90.5 kg - General Appearance General appearance: Present: well-developed, well-nourished, appears started age EENT: Present: PERRL, mucous membranes moist Neck: Present: no JVD Respiratory: Present: clear. Absent: rales, rhonchi Cardiology: Present: no rub, no gallops, regular rate, regular rhythm Additional Comments: Legs wrapped Gastrointestinal: Present: no tenderness, no guarding Integumentary: Present: no rash, warm and dry Neurologic: Present: no focal deficit, alert and oriented x3 Psychiatric: Present: mood/affect appropriate, cooperative - Lab 08/24/16 02:55 08/25/16 04:06 Most recent lab results ABG pH 7.35 pH Units (7.32-7.45) 08/24/16 02:10 ABG pCO2 41 mmHg (35-45) 08/24/16 02:10 ABG pO2 72 mmHg (85-104) L 08/24/16 02:10 ABG HCO3 22.6 mEQ/L (21-27) 08/24/16 02:10 ABG O2 Saturation 93 % (95-98) L 08/24/16 02:10 Calcium 8.3 mg/dL (8.6-10.8) L 08/25/16 04:06 Phosphorus 3.7 mg/dL (2.3-4.7) 08/25/16 04:06 Magnesium 2.4 mg/dL (1.6-2.6) 08/25/16 04:06 - VTE Documentation of Mechanical Device: Graduated compression elastic hosiery Consult Discharge Plan - Plan Referrals: Arleen Moore MD [Primary Care Provider] - <Mark Ken - Last Filed: 08/26/16 13:46> Date of Encounter: 08/25/16 Objective - Vital Signs Vital signs: Vital Signs Temp Pulse Resp BP Pulse Ox 08/26/16 11:46 70 08/26/16 11:15 98.0 F 70 18 143/73 97 08/26/16 08:17 98.6 F 72 18 138/88 92 08/26/16 08:08 72 08/26/16 07:59 16 92 08/26/16 04:50 70 08/26/16 04:36 98.0 F 74 16 140/64 93 08/26/16 04:11 16 91 08/25/16 23:44 98.1 F 95 16 134/65 93 08/25/16 23:15 16 91 08/25/16 21:13 98.7 F 83 18 150/61 92 08/25/16 21:00 79 08/25/16 20:27 16 94 08/25/16 17:03 18 94 08/25/16 16:21 99.0 F 75 18 149/67 94 Intake and Output 08/25/16 08/26/16 08/26/16 23:59 07:59 15:59 Intake Total 240 / 240 Output Total 690 / 690 30 / 30 785 / 785 Balance -450 / -450 -30 / -30 -785 / -785 Intake: Oral 240 / 240 Output: Urine 470 / 470 600 / 600 Chest Tube Drainage 220 / 220 30 / 30 185 / 185 mediastinal 1 160 / 160 20 / 20 75 / 75 mediastinal 2 60 / 60 110 / 110 Other: Meal Dinner Percent of Meal Consumed 75% Weight 91.7 kg Blood Glucose* 269 260 Patient Weight 08/26/16 23:59 Weight 91.7 kg - Lab 08/26/16 04:50 08/26/16 04:57 Most recent lab results ABG pH 7.35 pH Units (7.32-7.45) 08/24/16 02:10 ABG pCO2 41 mmHg (35-45) 08/24/16 02:10 ABG pO2 72 mmHg (85-104) L 08/24/16 02:10 ABG HCO3 22.6 mEQ/L (21-27) 08/24/16 02:10 ABG O2 Saturation 93 % (95-98) L 08/24/16 02:10 Calcium 8.4 mg/dL (8.6-10.8) L 08/26/16 04:57 Phosphorus 3.7 mg/dL (2.3-4.7) 08/25/16 04:06 Magnesium 2.4 mg/dL (1.6-2.6) 08/25/16 04:06 Urine Creatinine 160 mg/dL 08/25/16 16:27 Urine Sodium < 20.0 mEq/L 08/25/16 16:27 - Attending Attestation I examined this patient and my medical decision-making was reviewed with the AGENT SPA DESK/PA/Advanced Practice Nurse/Resident Physician. I agree with the documented findings, disposition and treatment plan as described except to the extent set forth below. Pt seen and examined resting comfortably after being transferred from ICU to . Interim events noted s/p CABG SCr mildly worse at 1.76, GFR 29 along with rising CPK and dropping hgb at 9.1, likely related. Continue supportive care and check urine for sodium, creatinine, eosinophils. Followup CPK and uric acid levels
[2016-08-25 16:37] LABS: Bilirubin,Urine Negative (Negative); Blood,Urine Small (Negative); Clarity,Urine Cloudy (Clear); Color,Urine Yellow (Yellow); Glucose,Urine (UA) 100 mg/dL (Normal); Ketones,Urine Negative (Negative); Leukocyte Esterase,Urine Moderate (Negative); Nitrite,Urine Negative (Negative); PH,Urine 5.5 pH Units (5.0-8.0); Protein,Urine 100 mg/dL (Neg-Trace); Specific Gravity,Urine 1.022 (1.010-1.025); Urobilinogen,Urine Normal (Normal)
[2016-08-25 16:39] LABS: Bacteria,Urine None Seen per hpf (None-Few); Hyaline Casts,Urine Few per lpf (None-Few); Squamous Epithelial Cell,Urine Many per lpf (None-Few); WBC,Urine 50-100 per hpf (0-3)
[2016-08-25 18:06] LABS: Creatinine,Urine 160 mg/dL
[2016-08-25 18:09] LABS: Sodium, Urine < 20.0 mEq/L
[2016-08-25] MEDS: Insulin DETEMIR 100 UNIT/ML X5UNITS SQ SCH (21:21)
[2016-08-26 05:02] LABS: Basophils % 0.2 %; Eosinophils # 0.1 K/mcL (0.0-0.6); Hematocrit 23.7 % (35.3-44.9); Hemoglobin 7.8 g/dL (11.5-15.4); Immature Granulocytes % 0.8 % (0-4); Lymphocytes # 1.9 K/mcL (0.6-4.6); Lymphocytes % 14.4 %; Mean Corpuscular HGB Conc 32.9 g/dL (31.6-35.5); Mean Corpuscular Hemoglobin 28.5 pg (28.0-33.3); Mean Corpuscular Volume 86.5 fL (83.0-100.0); Mean Platelet Volume 10.6 fL (9.4-12.4); Monocytes # 1.2 K/mcL (0.0-1.3); Neutrophils # 9.8 K/mcL (1.6-8.9); Platelet Count 113 K/mcL (140-400); Red Blood Count 2.74 M/mcL (3.82-4.97); Red Cell Distribution Width 14.2 % (11.5-14.5); Segmented Neutrophils % 74.6 %
[2016-08-26 05:16] LABS: Calcium 8.4 mg/dL (8.6-10.8); Potassium 4.2 mEq/L (3.5-4.5)
[2016-08-26] MEDS: Metoclopramide 10 MG/2 ML VIAL IVP SCH ×2 (06:15→11:20)
[2016-08-26] MEDS: Pantoprazole 40 MG VIAL IVP SCH (07:36)
[2016-08-26] MEDS: Multivit/Ca/Min/Fe/FA 1 TAB TABLET PO SCH (07:36)
[2016-08-26] MEDS: Furosemide 20 MG/2 ML VIAL IVP SCH ×2 (07:36→16:59)
[2016-08-26] MEDS: Cholecalciferol (D-3) 1,000 UNIT TABLET PO SCH (07:36)
[2016-08-26] MEDS: Aspirin Enteric Coated 81 MG Tablet PO SCH (07:36)
[2016-08-26] MEDS: Gabapentin 400 MG CAPSULE PO SCH ×3 (07:37→21:04)
[2016-08-26] MEDS: Chlorhexidine Rinse 15 ML MOUTHWASH MM SCH ×2 (07:38→21:03)
[2016-08-26] MEDS: Insulin LISPRO 300 UNITS/3 ML VIAL SQ SCH ×4 (08:26→21:06)
--- NOTE | 2016-08-26 10:43 | Cardiothoracic Progress Note ---
Date of Encounter: 08/26/16 Time of Encounter: 10:41 - Assessment and plan (1) Status post coronary artery bypass graft Current Visit: Yes Status: Acute The assessment and plan as outlined above was discussed with the patient and/or family members who expressed understanding and agreement. All questions were answered. The chest tubes and pacing wires were removed. We will check a stat portable chest x-ray. - Subjective Interval history: The patient has no complaints. Vital Signs, Last 4 Hours Temp Pulse Resp BP Pulse Ox 08/26/16 08:17 98.6 F 72 18 138/88 92 08/26/16 08:08 72 08/26/16 07:59 16 92 Oxgyen Flow Rate Oxygen Flow Rate (LPM) 1 Clinical Data, last 8 Hours Output, Chest Tube Drainage 50 Amount [mediastinal 2] Output, Chest Tube Drainage 10 Amount [mediastinal 2] Output, Chest Tube Drainage 50 Amount [mediastinal 2] Output, Chest Tube Drainage 10 Amount [mediastinal 2] Output, Chest Tube Drainage 25 Amount [mediastinal 1] Output, Chest Tube Drainage 25 Amount [mediastinal 1] Output, Chest Tube Drainage 25 Amount [mediastinal 1] Output, Chest Tube Drainage 20 Amount [mediastinal 1] Output, Urine Amount 600 Weight 08/24/16 08/25/16 08/26/16 23:59 23:59 23:59 Weight 90.5 kg 91.7 kg Lungs are clear to percussion and auscultation. Heart is in a normal sinus rhythm. All incisions are healing well without signs of infection and the sternum is stable. Chest tube drainage is minimal and there is no air leak. - Labs 08/26/16 04:50 08/26/16 04:57 Lab Results, Last 24 hours 08/26/16 08/26/16 04:50 04:57 WBC 13.1 H Hgb 7.8 L Hct 23.7 L Plt Count 113 L Sodium 133 L Potassium 4.2 Chloride 103 Carbon Dioxide 23 BUN 53 H D Creatinine 1.68 H Glucose 196 H Calcium 8.4 L - VTE Documentation of Mechanical Device: Graduated compression elastic hosiery Consult Discharge Plan - Plan Referrals: Arleen Moore MD [Primary Care Provider] -
--- NOTE | 2016-08-26 12:46 | Nephrology Progress Note ---
Date of Encounter: 08/26/16 Time of Encounter: 12:45 Subjective Principal diagnosis: Status post CABG Objective - Vital Signs Vital signs: Vital Signs Temp Pulse Resp BP Pulse Ox 08/26/16 11:46 70 08/26/16 11:15 98.0 F 70 18 143/73 97 08/26/16 08:17 98.6 F 72 18 138/88 92 08/26/16 08:08 72 08/26/16 07:59 16 92 08/26/16 04:50 70 08/26/16 04:36 98.0 F 74 16 140/64 93 08/26/16 04:11 16 91 08/25/16 23:44 98.1 F 95 16 134/65 93 08/25/16 23:15 16 91 08/25/16 21:13 98.7 F 83 18 150/61 92 08/25/16 21:00 79 08/25/16 20:27 16 94 08/25/16 17:03 18 94 08/25/16 16:21 99.0 F 75 18 149/67 94 08/25/16 13:05 98.5 F 73 16 150/70 96 Intake and Output 08/25/16 08/26/16 08/26/16 23:59 07:59 15:59 Intake Total 240 / 240 Output Total 690 / 690 30 / 30 785 / 785 Balance -450 / -450 -30 / -30 -785 / -785 Intake: Oral 240 / 240 Output: Urine 470 / 470 600 / 600 Chest Tube Drainage 220 / 220 30 / 30 185 / 185 mediastinal 1 160 / 160 20 / 20 75 / 75 mediastinal 2 60 / 60 10 110 / 110 Other: Meal Dinner Percent of Meal Consumed 75% Weight 91.7 kg Blood Glucose* 269 260 Patient Weight 08/26/16 23:59 Weight 91.7 kg - Lab 08/26/16 04:50 08/26/16 04:57 Most recent lab results ABG pH 7.35 pH Units (7.32-7.45) 08/24/16 02:10 ABG pCO2 41 mmHg (35-45) 08/24/16 02:10 ABG pO2 72 mmHg (85-104) L 08/24/16 02:10 ABG HCO3 22.6 mEQ/L (21-27) 08/24/16 02:10 ABG O2 Saturation 93 % (95-98) L 08/24/16 02:10 Calcium 8.4 mg/dL (8.6-10.8) L 08/26/16 04:57 Phosphorus 3.7 mg/dL (2.3-4.7) 08/25/16 04:06 Magnesium 2.4 mg/dL (1.6-2.6) 08/25/16 04:06 Urine Creatinine 160 mg/dL 08/25/16 16:27 Urine Sodium < 20.0 mEq/L 08/25/16 16:27 - VTE Documentation of Mechanical Device: Graduated compression elastic hosiery Consult Discharge Plan - Plan Referrals: Arleen Moore MD [Primary Care Provider] -
--- NOTE | 2016-08-26 13:51 | Nephrology Progress Note ---
Date of Encounter: 08/26/16 Time of Encounter: 13:00 - Assessment and Plan (1) HI (acute kidney injury) Current Visit: Yes Status: Acute SCr improving at 1.68, GFR 31 along with imprving CPk at 1089, will monitor Po fluids encouraged. Ideally, maintaining even fluid balance would be beneficial to improving renal function Clover noted <20 consistent with volume depletion. FEurea noted at 16.9% again consistent with pre-renal state Avoid nephrotoxins if possible (2) Anemia Current Visit: Yes Status: Acute Hgb noted dropping at 7.8, will monitor Transfusion parameter per primary team Qualifiers: Anemia type: other cause Other causes of anemia: other cause, not classified Qualified Code(s): D64.89 - Other specified anemias (3) Status post coronary artery bypass graft Current Visit: Yes Status: Acute Per cardiothoracic surgery (4) CKD (chronic kidney disease), stage III Current Visit: Yes Status: Chronic Subjective Principal diagnosis: Status post CABG Interval history: Pt seen and examined sitting up in chair, feels better now that her chest tubes have been removed. No new complaints. Objective - Vital Signs Vital signs: Vital Signs Temp Pulse Resp BP Pulse Ox 08/26/16 11:46 70 08/26/16 11:15 98.0 F 70 18 143/73 97 08/26/16 08:17 98.6 F 72 18 138/88 92 08/26/16 08:08 72 08/26/16 07:59 16 92 08/26/16 04:50 70 08/26/16 04:36 98.0 F 74 16 140/64 93 08/26/16 04:11 16 91 08/25/16 23:44 98.1 F 95 16 134/65 93 08/25/16 23:15 16 91 08/25/16 21:13 98.7 F 83 18 150/61 92 08/25/16 21:00 79 08/25/16 20:27 16 94 08/25/16 17:03 18 94 08/25/16 16:21 99.0 F 75 18 149/67 94 Intake and Output 08/25/16 08/26/16 08/26/16 23:59 07:59 15:59 Intake Total 240 / 240 Output Total 690 / 690 30 / 30 785 / 785 Balance -450 / -450 -30 / -30 -785 / -785 Intake: Oral 240 / 240 Output: Urine 470 / 470 600 / 600 Chest Tube Drainage 220 / 220 30 30 185 / 185 mediastinal 1 160 / 160 20 / 20 75 / 75 mediastinal 2 60 / 60 110 / 110 Other: Meal Dinner Percent of Meal Consumed 75% Weight 91.7 kg Blood Glucose* 269 260 Patient Weight 08/26/16 23:59 Weight 91.7 kg - General Appearance General appearance: Present: well-developed, well-nourished (NAD) EENT: Present: ATNC, mucous membranes moist Neck: Present: no JVD, supple Additional Comments: good areation ant bilat with midline dressing above her surgical wound Cardiology: Present: no edema, normal S1, normal S2 Gastrointestinal: Present: no tenderness, no guarding Integumentary: Present: warm and dry Neurologic: Present: no focal deficit Musculoskeletal: Present: no deformities Psychiatric: Present: mood/affect appropriate - Lab 08/26/16 04:50 08/26/16 04:57 Most recent lab results ABG pH 7.35 pH Units (7.32-7.45) 08/24/16 02:10 ABG pCO2 41 mmHg (35-45) 08/24/16 02:10 ABG pO2 72 mmHg (85-104) L 08/24/16 02:10 ABG HCO3 22.6 mEQ/L (21-27) 08/24/16 02:10 ABG O2 Saturation 93 % (95-98) L 08/24/16 02:10 Calcium 8.4 mg/dL (8.6-10.8) L 08/26/16 04:57 Phosphorus 3.7 mg/dL (2.3-4.7) 08/25/16 04:06 Magnesium 2.4 mg/dL (1.6-2.6) 08/25/16 04:06 Urine Creatinine 160 mg/dL 08/25/16 16:27 Urine Sodium < 20.0 mEq/L 08/25/16 16:27 - VTE Documentation of Mechanical Device: Graduated compression elastic hosiery Consult Discharge Plan - Plan Referrals: Arleen Moore MD [Primary Care Provider] -
[2016-08-26] MEDS: Insulin DETEMIR 100 UNIT/ML X5UNITS SQ SCH (21:05)
[2016-08-26] MEDS: *HR* OxyCODONE/APAP 5/325 TABLET PO PRN (21:09)
[2016-08-27] MEDS: *HR* OxyCODONE/APAP 5/325 TABLET PO PRN ×2 (03:02→20:59)
[2016-08-27 05:50] LABS: Beta Globulin (PEP) 0.48 g/dL (0.48-1.10)
[2016-08-27] MEDS: Insulin LISPRO 300 UNITS/3 ML VIAL SQ SCH ×3 (07:36→17:02)
[2016-08-27] MEDS: Furosemide 20 MG/2 ML VIAL IVP SCH (08:15)
[2016-08-27] MEDS: Gabapentin 400 MG CAPSULE PO SCH ×3 (08:16→20:59)
[2016-08-27] MEDS: Pantoprazole 40 MG VIAL IVP SCH (08:16)
[2016-08-27] MEDS: Aspirin Enteric Coated 81 MG Tablet PO SCH (08:16)
[2016-08-27] MEDS: Chlorhexidine Rinse 15 ML MOUTHWASH MM SCH ×2 (08:16→20:55)
[2016-08-27] MEDS: Multivit/Ca/Min/Fe/FA 1 TAB TABLET PO SCH (08:16)
[2016-08-27] MEDS: Cholecalciferol (D-3) 1,000 UNIT TABLET PO SCH (08:16)
--- NOTE | 2016-08-27 09:13 | Cardiothoracic Progress Note ---
Date of Encounter: 08/27/16 Time of Encounter: 09:12 - Assessment and plan (1) Status post coronary artery bypass graft Current Visit: Yes Status: Acute Hopefully, the patient can be discharged in 1-2 days. - Subjective Interval history: The patient complains of mild postoperative pain. Vital Signs, Last 4 Hours Temp Pulse Resp BP Pulse Ox 08/27/16 08:21 16 96 08/27/16 07:50 66 08/27/16 07:33 98.2 F 66 18 148/78 96 Oxgyen Flow Rate Oxygen Flow Rate (LPM) 0 Weight 08/25/16 08/26/16 08/27/16 23:59 23:59 23:59 Weight 90.5 kg 91.7 kg Lungs are clear to percussion and auscultation. Heart is in a normal sinus rhythm. All incisions are healing well without signs of infection and the sternum is stable. Chest x-ray this morning reveals a trace apical pneumothorax that is improving. - Labs 08/26/16 04:50 08/26/16 04:57 - VTE Documentation of Mechanical Device: Graduated compression elastic hosiery Consult Discharge Plan - Plan Referrals: Arleen Moore MD [Primary Care Provider] -
--- NOTE | 2016-08-27 12:33 | Nephrology Progress Note ---
Date of Encounter: 08/27/16 Time of Encounter: 12:40 - Assessment and Plan (1) HI (acute kidney injury) Status: Acute SCr not checked today, UOP still very good Continue po fluids Avoid nephrotoxins if possible Will change iv lasix to po (2) Anemia Status: Acute Hgb noted dropping at 7.8 as of yesterday, will monitor Transfusion parameter per primary team Qualifiers: Anemia type: other cause Other causes of anemia: other cause, not classified Qualified Code(s): D64.89 - Other specified anemias (3) Status post coronary artery bypass graft Status: Acute Per cardiothoracic surgery (4) CKD (chronic kidney disease), stage III Status: Chronic GFR typically 30-40s at baseline, hence she is essentially within baseline Subjective Principal diagnosis: Status post CABG Interval history: Pt seen and examined sitting up in chair, CXR results noted with a small improving pneumothorax, small right pleural effusion and bilateral ATX. No new complaints. Objective - Vital Signs Vital signs: Vital Signs Temp Pulse Resp BP Pulse Ox 08/27/16 11:36 18 98 08/27/16 11:23 66 08/27/16 11:21 97.6 F 64 18 145/74 98 08/27/16 08:21 16 96 08/27/16 07:50 66 08/27/16 07:33 98.2 F 66 18 148/78 96 08/27/16 04:39 98.3 F 71 18 162/83 96 08/26/16 23:35 98.5 F 95 14 148/78 95 08/26/16 23:32 18 147/78 96 08/26/16 20:42 99.3 F 87 18 147/78 94 08/26/16 20:09 18 93 08/26/16 17:39 76 08/26/16 16:32 16 95 08/26/16 16:15 98.0 F 76 18 146/78 96 08/26/16 15:58 74 18 97 Intake and Output 08/26/16 08/27/16 08/27/16 23:59 07:59 15:59 Intake Total 740 / 740 150 / 150 240 / 240 Output Total 1400 / 1400 700 / 700 Balance -660 / -660 150 / 150 -460 / -460 Intake: Oral 740 / 740 150 / 150 240 / 240 Output: Urine 1400 / 1400 700 / 700 Other: Meal Dinner Breakfast Percent of Meal Consumed 100% 50% Blood Glucose* 215 129 170 - General Appearance General appearance: Present: well-developed, well-nourished EENT: Present: ATNC, mucous membranes moist Neck: Present: no JVD, supple Additional Comments: good areation bilat Cardiology: Present: no edema, normal S1, normal S2 Gastrointestinal: Present: no tenderness, no guarding Integumentary: Present: warm and dry Neurologic: Present: no focal deficit Musculoskeletal: Present: no deformities Psychiatric: Present: mood/affect appropriate - Lab 08/28/16 00:21 08/28/16 00:21 Most recent lab results ABG pH 7.35 pH Units (7.32-7.45) 08/24/16 02:10 ABG pCO2 41 mmHg (35-45) 08/24/16 02:10 ABG pO2 72 mmHg (85-104) L 08/24/16 02:10 ABG HCO3 22.6 mEQ/L (21-27) 08/24/16 02:10 ABG O2 Saturation 93 % (95-98) L 08/24/16 02:10 Calcium 8.4 mg/dL (8.6-10.8) L 08/26/16 04:57 Phosphorus 3.7 mg/dL (2.3-4.7) 08/25/16 04:06 Magnesium 2.4 mg/dL (1.6-2.6) 08/25/16 04:06 Urine Creatinine 160 mg/dL 08/25/16 16:27 Urine Sodium < 20.0 mEq/L 08/25/16 16:27 - VTE Documentation of Mechanical Device: Graduated compression elastic hosiery Consult Discharge Plan - Plan Instructions: Metoprolol (By mouth), Coronary Artery Disease (GEN), Coronary Artery Bypass Graft (DC) Additional Instructions: If you have questions that are not answered by these instructions, please call your nurse or doctor. * Do not drive for 1 month or until allowed by your surgeon. * If you smoke, STOP SMOKING. Smoking or tobacco use significantly increases your risk of heart disease because nicotine causes the arteries to narrow or constrict. It also causes fats to stick to the artery. Your chances of occluding your new bypasses or having a heart attack are greatly increased if you continue to smoke. For more information call the patient education line for smoking cessation 5-120-UVGB-NOW. * Continue to use your incentive Spirometry about 6 times each day (1 use = 5 to 10 breaths) for 1 month. This important to help prevent pneumonia. * Follow your Phase I Cardiac Rehab Activity Guide. * You may climb stairs, one step at a time, as you are able. * Do not lift more than 10 pounds (1/2 gallon of milk = 5 pounds), vacuum, sweep , shovel snow, rake leaves, or do anything that could pull on the chest for 2 months. * You may resume sexual activity when you feel ready. * Continue to wear SCOT hose during the day for about 1 month. Remove and wash daily in mild detergent. * Gently wash incision with soap and water daily. Rinse well and pat dry with a clean towel. Do not soak your incisions under water. Do not use any powders, lotions, creams or ointments on your incision. * Chest tube sites may drain fluid for 1-2 weeks and can be covered with dry gauze. They also may become reddened or inflamed as they heal and can be cleaned twice a day with hydrogen peroxide. * Take your pulse once a day. If it is less than 60 or greater than 110 beats per minute at rest, call your Aerodynamics Teacher, . * Take your temperature by mouth once a day for 2 weeks. Call your surgeon of it is above 101 degrees. * Call the surgeon if you notice drainage or redness at your incision lines. * Weigh yourself each day for 2 weeks. Call your doctor if you notice and increase in your weight of 3 pounds or more in a day or increasing shortness of breath. * If you experience chest pain, shortness of breath, dizziness or extreme tiredness, stop and rest. Please notify your doctor if you experience any of these symptoms. * If you experience any of these symptoms and they are not relieved with rest, please call 911. Referrals: Samson Chavez MD [Partnered Physician] - (OFFICE WILL CALL PATIENT AT HOME WITH FOLLOW UP APPOINTMENT.) Binta Zhang MD [Partnered Physician] - 09/05/16 2:00 pm Arleen Moore MD [Primary Care Provider] - 09/04/16 2:50 pm Prescriptions: OxyCODONE/APAP 5/325 [Percocet 5/325 MG] 1 each PO Q4HR PRN #30 tablet PRN Reason: Severe Pain Aspirin Enteric Coated [Aspirin EC] 81 mg PO DAILY #30 tablet. Metoprolol [Lopressor] 25 mg PO BID #60 tablet
[2016-08-27] MEDS: Furosemide 20 MG TABLET PO SCH (17:02)
[2016-08-27] MEDS: Insulin DETEMIR 100 UNIT/ML X5UNITS SQ SCH (20:57)
[2016-08-28 00:57] LABS: Basophils % 0.4 %; Eosinophils # 0.6 K/mcL (0.0-0.6); Eosinophils % 5.5 %; Hematocrit 24.8 % (35.3-44.9); Hemoglobin 7.9 g/dL (11.5-15.4); Immature Granulocytes % 1.2 % (0-4); Lymphocytes # 1.9 K/mcL (0.6-4.6); Lymphocytes % 18.1 %; Mean Corpuscular HGB Conc 31.9 g/dL (31.6-35.5); Mean Corpuscular Hemoglobin 27.6 pg (28.0-33.3); Mean Corpuscular Volume 86.7 fL (83.0-100.0); Mean Platelet Volume 9.9 fL (9.4-12.4); Monocytes # 1.1 K/mcL (0.0-1.3); Monocytes % 10.3 %; Neutrophils # 6.7 K/mcL (1.6-8.9); Platelet Count 194 K/mcL (140-400); Red Blood Count 2.86 M/mcL (3.82-4.97); Red Cell Distribution Width 13.9 % (11.5-14.5); Segmented Neutrophils % 64.5 %
[2016-08-28 01:11] LABS: Calcium 8.7 mg/dL (8.6-10.8); Potassium 3.9 mEq/L (3.5-4.5)
[2016-08-28] MEDS: Insulin LISPRO 300 UNITS/3 ML VIAL SQ SCH ×3 (04:17→12:00)
[2016-08-28] MEDS ORDERED: MOM Conc 10 ML UD.LIQ PO ONE (08:02)
[2016-08-28] MEDS: Gabapentin 400 MG CAPSULE PO SCH (08:10)
[2016-08-28] MEDS: Cholecalciferol (D-3) 1,000 UNIT TABLET PO SCH (08:11)
[2016-08-28] MEDS: Furosemide 20 MG TABLET PO SCH (08:11)
[2016-08-28] MEDS: Aspirin Enteric Coated 81 MG Tablet PO SCH (08:11)
[2016-08-28] MEDS: Pantoprazole 40 MG VIAL IVP SCH (08:11)
[2016-08-28] MEDS: Multivit/Ca/Min/Fe/FA 1 TAB TABLET PO SCH (08:11)
[2016-08-28] MEDS: Chlorhexidine Rinse 15 ML MOUTHWASH MM SCH (08:11)
[2016-08-28 08:35] LABS: IFE Reflexed IFE Done
--- NOTE | 2016-08-28 10:06 | Nephrology Progress Note ---
Date of Encounter: 08/28/16 Time of Encounter: 10:03 - Assessment and Plan (1) HI (acute kidney injury) Current Visit: Yes Status: Acute Patient with nonoliguric HI on CKD stage III - improving. Etiology is multifactorial - hemodynamics, underlying CKD and chronic use of NSAIDs. Creatinine improving today 1.76 > 1.68 > 1.31. GFR 41, appears to be patient's baseline. No indication for acute hemodialysis at this time. As patient was not on diuretics prior to admission, would consider stopping lasix at discharge. Recommend BMP in 1 week then follow up with PCP. Would recommend holding ALEJANDRO inhibitor and HCTZ until follow up with PCP. Patient did not follow with a nephrologis prior to admission. Will require outpatient follow up in 2-5 weeks to monitor underlying chronic kidney disease. (2) Anemia Current Visit: Yes Status: Acute Patient with anemia. No signs of acute bleeding. Initial drop likely secondary to CABG. Hgb stable at 7.9 today. Continue to monitor hemoglobin while inpatient. Will add iron profile and ferritin to labs to evaluate for underlying iron deficiency. Recommend follow up with PCP. Qualifiers: Anemia type: other cause Other causes of anemia: other cause, not classified Qualified Code(s): D64.89 - Other specified anemias (3) CKD (chronic kidney disease), stage III Current Visit: Yes Status: Chronic Patient with underlying chronic kidney disease. On review of charts, baseline GFR is 30s-40s consistent with Stage III. (4) Status post coronary artery bypass graft Current Visit: Yes Status: Acute Management per cardiothoracic surgery. Subjective Principal diagnosis: Status post CABG Interval history: Ms Lorena Silva is a 65yo female admitted status post CABG. Nephrology consulted for acute kidney injury. Patient appears to have CKD, stage III with baseline GFR in the 40s-50s. No acute events overnight. Patient afebrile, vital signs within normal limits. Creatinine improving 1.76 > 1.68 > 1.31. GFR 41 today. Patient seen and examined this morning. She is awake and alert, in no acute distress. She says she is doing very well and is ready to go home. Her only complaint is some chest soreness. She reports that she is urinating with no difficulty. On exam, lungs clear to auscultation. Legs with SCOT hose in place. Objective - Vital Signs Vital signs: Vital Signs Temp Pulse Resp BP Pulse Ox 08/28/16 08:00 65 08/28/16 07:43 98.1 F 69 16 140/74 95 08/28/16 04:55 97.6 F 67 16 140/74 95 08/28/16 04:38 16 97 08/28/16 04:10 67 08/28/16 00:20 98.1 F 64 17 146/76 96 08/27/16 20:31 17 96 08/27/16 20:00 98.3 F 74 18 139/65 95 08/27/16 16:14 98.0 F 69 18 152/77 96 08/27/16 15:45 16 152/77 96 08/27/16 15:23 68 08/27/16 11:36 18 98 08/27/16 11:23 66 08/27/16 11:21 97.6 F 64 18 145/74 98 Intake and Output 08/27/16 08/28/16 08/28/16 23:59 07:59 15:59 Intake Total 200 / 200 740 / 740 Output Total 450 / 450 500 / 500 Balance -450 / -450 200 / 200 240 / 240 Intake: Oral 200 / 200 740 / 740 Output: Urine 450 / 450 500 / 500 Other: Meal Breakfast Percent of Meal Consumed 75% Weight 92.442 kg Blood Glucose* 118 75 Patient Weight 08/28/16 23:59 Weight 92.442 kg - General Appearance General appearance: Present: well-developed, well-nourished, appears started age EENT: Present: PERRL, mucous membranes moist, hearing intact, vision intact Neck: Present: no JVD Respiratory: Present: clear. Absent: wheezing, rales, rhonchi Cardiology: Present: no murmurs, no rub, no gallops, regular rate, regular rhythm Gastrointestinal: Present: no tenderness, no guarding Integumentary: Present: warm and dry Neurologic: Present: no focal deficit, alert and oriented x3 Additional Comments: SCOT velazquez in place - Lab 08/28/16 00:21 08/28/16 00:21 Most recent lab results ABG pH 7.35 pH Units (7.32-7.45) 08/24/16 02:10 ABG pCO2 41 mmHg (35-45) 08/24/16 02:10 ABG pO2 72 mmHg (85-104) L 08/24/16 02:10 ABG HCO3 22.6 mEQ/L (21-27) 08/24/16 02:10 ABG O2 Saturation 93 % (95-98) L 08/24/16 02:10 Calcium 8.7 mg/dL (8.6-10.8) 08/28/16 00:21 Phosphorus 3.7 mg/dL (2.3-4.7) 08/25/16 04:06 Magnesium 2.4 mg/dL (1.6-2.6) 08/25/16 04:06 Urine Creatinine 160 mg/dL 08/25/16 16:27 Urine Sodium < 20.0 mEq/L 08/25/16 16:27 - VTE Documentation of Mechanical Device: Graduated compression elastic hosiery Consult Discharge Plan - Plan Instructions: Coronary Artery Disease (GEN), Coronary Artery Bypass Graft (DC) Additional Instructions: If you have questions that are not answered by these instructions, please call your nurse or doctor. * Do not drive for 1 month or until allowed by your surgeon. * If you smoke, STOP SMOKING. Smoking or tobacco use significantly increases your risk of heart disease because nicotine causes the arteries to narrow or constrict. It also causes fats to stick to the artery. Your chances of occluding your new bypasses or having a heart attack are greatly increased if you continue to smoke. For more information call the patient education line for smoking cessation 1-974-VYHC-NOW. * Continue to use your incentive Spirometry about 6 times each day (1 use = 5 to 10 breaths) for 1 month. This important to help prevent pneumonia. * Follow your Phase I Cardiac Rehab Activity Guide. * You may climb stairs, one step at a time, as you are able. * Do not lift more than 10 pounds (1/2 gallon of milk = 5 pounds), vacuum, sweep , shovel snow, rake leaves, or do anything that could pull on the chest for 2 months. * You may resume sexual activity when you feel ready. * Continue to wear SCOT hose during the day for about 1 month. Remove and wash daily in mild detergent. * Gently wash incision with soap and water daily. Rinse well and pat dry with a clean towel. Do not soak your incisions under water. Do not use any powders, lotions, creams or ointments on your incision. * Chest tube sites may drain fluid for 1-2 weeks and can be covered with dry gauze. They also may become reddened or inflamed as they heal and can be cleaned twice a day with hydrogen peroxide. * Take your pulse once a day. If it is less than 60 or greater than 110 beats per minute at rest, call your Orthopedics Pediatric Physician, . * Take your temperature by mouth once a day for 2 weeks. Call your surgeon of it is above 101 degrees. * Call the surgeon if you notice drainage or redness at your incision lines. * Weigh yourself each day for 2 weeks. Call your doctor if you notice and increase in your weight of 3 pounds or more in a day or increasing shortness of breath. * If you experience chest pain, shortness of breath, dizziness or extreme tiredness, stop and rest. Please notify your doctor if you experience any of these symptoms. * If you experience any of these symptoms and they are not relieved with rest, please call 911. Referrals: Samson Chavez MD [Partnered Physician] - (OFFICE WILL CALL PATIENT AT HOME WITH FOLLOW UP APPOINTMENT.) Binta Zhang MD [Partnered Physician] - 09/05/16 2:00 pm Arleen Moore MD [Primary Care Provider] - 09/04/16 2:50 pm
[2016-08-28] MEDS: *HR* OxyCODONE/APAP 5/325 TABLET PO PRN (13:04)
[2016-08-28 13:07] LABS: % Iron Saturation 16 % (15-50); Iron 27 mcg/dL (50-170); Transferrin 123 mg/dL (180-382)
[2016-08-28 13:27] LABS: Ferritin 1015 ng/ml (5-204)
[2016-08-28 13:43] LABS: Immunoglobulin A 163 mg/dL (68-408); Immunoglobulin G 577 mg/dL (768-1632); Immunoglobulin M 59 mg/dL (35-263)
[2016-08-28 13:53] VITALS: BP 127/83
--- NOTE | 2016-08-28 14:59 | Discharge Summary ---
Date of Encounter: 08/28/16 Time of Encounter: 14:53 - Discharge Diagnosis (1) Status post coronary artery bypass graft Priority: Primary Status: Acute - Discharge Medications Prescriptions: OxyCODONE/APAP 5/325 [Percocet 5/325 MG] 1 each PO Q4HR PRN #30 tablet PRN Reason: Severe Pain Aspirin Enteric Coated [Aspirin EC] 81 mg PO DAILY #30 tablet. Metoprolol [Lopressor] 25 mg PO BID #60 tablet Home Medications: Calcium Carbonate [Calcium] 500 mg PO DAILY 08/16/16 [History] Cholecalciferol (D-3) [Vitamin D] 1,000 unit PO DAILY 08/16/16 [History] Gabapentin [Neurontin] 800 mg PO TID 08/16/16 [History] Insulin DETEMIR [Levemir] 75 unit SQ HS 08/16/16 [History] Lisinopril [Zestril] 40 mg PO DAILY 08/16/16 [History] Metoprolol [Lopressor] 25 mg PO BID 08/16/16 [History] Multivitamin [Multivitamins] 1 each PO DAILY 08/16/16 [History] Omeprazole 20 mg PO DAILY 08/16/16 [History] Simvastatin [Zocor] 20 mg PO HS 08/16/16 [History] SitaGLIPtin [Januvia] 100 mg PO DAILY 08/16/16 [History] hydroCHLOROthiazide [Hydrochlorothiazide] 25 mg PO DAILY 08/16/16 [History] Aspirin Enteric Coated [Aspirin EC] 81 mg PO DAILY #30 tablet. 08/28/16 [Rx] Metoprolol [Lopressor] 25 mg PO BID #60 tablet 08/28/16 [Rx] OxyCODONE/APAP 5/325 [Percocet 5/325 MG] 1 each PO Q4HR PRN #30 tablet 08/28/16 [Rx] Allergies/Adverse Reactions: Allergies No Known Allergies Allergy (Verified 08/23/16 07:13) Date of admission: 08/23/16 11:22 Primary care physician: Arleen Moore MD Consults: 08/23/16 11:45 Consult to Cardiac Rehabilitation-Phase1 [CONS] Routine Comment: Reason for Consult: Post open heart Call Completed: Yes Procedure(s) Performed: August 23, 2016. Coronary artery bypass grafting 4, utilizing the left internal mammary artery. - Patient Status Disposition: Home, Self-Care Condition: Fair Functional capacity at discharge: independent ambulation Overall status at discharge: patient is progressing back to baseline - Discharge Instructions Instructions: Coronary Artery Disease (GEN), Coronary Artery Bypass Graft (DC) Follow Up With: Samson Chavez MD [Partnered Physician] - (OFFICE WILL CALL PATIENT AT HOME WITH FOLLOW UP APPOINTMENT.) Binta Zhang MD [Partnered Physician] - 09/05/16 2:00 pm Arleen Moore MD [Primary Care Provider] - 09/04/16 2:50 pm - Hospital Course Hospital course: Ms. Silva is a 65 year old female The patient is a 65-year-old female who presented with jaw pain and shortness of breath. She did have a positive stress test. Cardiac catheterization revealed severe coronary artery disease and she was referred for surgery. On August 23, 2016, my partner Dr. Zhang took the patient to the operating room for coronary artery bypass grafting 4, utilizing the left internal mammary artery. The patient was seen by nephrology postoperatively. Her renal function did return to baseline. On August 26 her chest tubes and pacing wires were removed. Chest x-ray revealed a tiny apical pneumothorax. On August 27 another chest x-ray revealed the tiny apical pneumothorax that was improved. The patient otherwise did well and was discharged on August 28. At that time, she was afebrile. Lungs were clear to percussion and auscultation. Heart was in a normal sinus rhythm. All incisions were healing well without signs of infection and the sternum was stable. Discharge medications are on the med rec and include Percocet for pain. I did check the [place] automated Rx reporting system. She was postoperative and was given a one-week supply. Appropriate precautions were given. She was to return to her previous and regular diet. She was to walk as much as possible, but to avoid heavy lifting for a total of 3 months after surgery. She was to avoid driving for 1 month. She was to follow-up in see Dr. Zhang in the office in 4 weeks as directed. 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 She was to call sooner for any difficulties. - Time Spent with Patient Total time spent providing and/or coordinating discharge services: Physical Examination Vital Signs, Last 4 Hours Temp Pulse Resp BP Pulse Ox 08/28/16 12:00 98.6 F 83 16 127/83 08/28/16 11:22 20 94 Open Heart Registry Aspirin Cont/Prescribed at DC: Yes Beta Sneha Cont/Prescribed at DC: Yes Statin Cont/Prescribed at DC: Yes ALEJANDRO/ARB Cont/Prescribed at DC: Yes - VTE Documentation of Mechanical Device: Graduated compression elastic hosiery
== END 2016-08-28 16:10 | disposition home or self-care (01) | DRG 236 ==
LOC: SAMDAY 05:53 → ICNU 11:22 → 2NNU 08-25 13:16
PROVIDERS: ADMIT Thoracic Surgery (Cardiothoracic Vascular Surgery); ATTEND Thoracic Surgery (Cardiothoracic Vascular Surgery)